=== PATIENT | female | born 1985 | race Caucasian/White ===

== ENCOUNTER 2017-07-16 20:16 | Emergency (ER) | payer BC ==
[~2017-07-16] VITALS: Ht 165.1 cm; Wt 72.6 kg
--- NOTE | 2017-07-16 21:16 | NUR ---
PT C/O PRODUCTIVE COUGH X4 DAYS, WHICH IS WORSE AT NIGHT. SELF REPORTED HX OF ASTHMA. PLACED ON MONITOR AND PULSE OX. RESPIRATIONS EVEN AND NON LABORED.
--- NOTE | 2017-07-16 21:21 | NUR ---
PATT LEAL AT BEDSIDE FOR MSE.
--- NOTE | 2017-07-16 21:29 | NUR ---
CONSENT OBTAINED FOR XRAY.
--- NOTE | 2017-07-16 21:46 | NUR ---
XRAY AT PT BEDSIDE.
[2017-07-16] MEDS ORDERED: predniSONE 50 MG TABLET ONE (21:53)
[2017-07-16] MEDS ORDERED: predniSONE 50 MG TABLET PO ONE (22:00)
--- NOTE | 2017-07-16 22:20 | NUR ---
Patient discharged to home in stable conditon. Written and verbal after care instructions given. Patient verbalizes understanding of instructions. Pt ambulated from ER w/ steady gait. VSS. No distress noted. Pt took all personal belongings.
[2017-07-16 22:31] VITALS: BP 118/84
== END 2017-07-16 22:32 | disposition home or self-care (01) ==
LOC: ER 20:16
DX: J40 Bronchitis, not specified as acute or chronic (principal); R05 Cough
CPT/HCPCS: 71045; A4663; J7512

== ENCOUNTER 2018-07-12 00:53 | Emergency (ER) | payer MEDICAID ==
[~2018-07-12] VITALS: Ht 165.1 cm; Wt 74.8 kg
--- NOTE | 2018-07-12 01:12 | NUR ---
Pt ambulates to ER with c/o abdominal pain x 24 hrs, worse in the last 3 hrs. Pt states she had a miscarriage (was 6 weeks ) last week & went to [facility], & was told to follow up in 2 weeks. LMP was on 05/03/18. G1A1. Denies chest pain/shortness of breath. Pt placed on monitor. Will continue to monitor.
--- NOTE | 2018-07-12 01:14 | NUR ---
Dr. Shara BELTRE MD at bedside to evaluate pt.
[2018-07-12] MEDS ORDERED: ONDANSETRON 4 MG/2 ML VIAL ONE (01:29)
[2018-07-12] MEDS ORDERED: MORPHINE SULFATE 4 MG/1 ML DISP.SYRIN ONE (01:29)
[2018-07-12] MEDS ORDERED: IV NORMAL SALINE 1000 ML BAG IV ONE (01:30)
[2018-07-12] MEDS ORDERED: ONDANSETRON 4 MG/2 ML VIAL IV ONE (01:30)
[2018-07-12] MEDS ORDERED: MORPHINE SULFATE 2 MG/1 ML DISP.SYRIN IV ONE (01:30)
[2018-07-12 01:41] LABS: BASOPHILS # (AUTO) 0.2 K/uL (0.0-8.0); BASOPHILS % (AUTO) 1.5 % (0.0-2.0); EOSINOPHILS # (AUTO) 0.4 K/uL (0.0-0.7); EOSINOPHILS % (AUTO) 3.6 % (0.0-7.0); HEMATOCRIT 41.9 % (31.2-41.9); LYMPHOCYTES # (AUTO) 4.1 K/uL (20.0-40.0); MEAN CORPUSCULAR HEMOGLOBIN 29.8 uug (24.7-32.8); MEAN CORPUSCULAR HGB CONC 33 g/dL (32.3-35.6); MEAN CORPUSCULAR VOLUME 89.4 fL (75.5-95.3); MONOCYTES # (AUTO) 0.6 K/uL (2.0-10.0); MONOCYTES % (AUTO) 6.3 % (0.0-11.0); NEUTROPHILS # (AUTO) 4.8 K/uL (1.8-8.9); NEUTROPHILS % (AUTO) 47.6 % (38.5-71.5); PLATELET COUNT (AUTO) 241 K/uL (179-408); RED BLOOD CELL COUNT(AUTO) 4.69 MIL/uL (3.63-4.92); WHITE BLOOD COUNT (AUTO) 10.1 K/uL (3.8-11.8)
[2018-07-12 01:46] LABS: CARBON DIOXIDE 26 mmol/L (21-32); CHLORIDE 105 mmol/L (98-107); CREATININE 0.7 mg/dL (0.6-1.3); GLUCOSE 93 mg/dL (74-106); POTASSIUM 4.1 mmol/L (3.5-5.1); UREA NITROGEN, BLOOD 16 mg/dL (7-18)
[2018-07-12 01:52] LABS: ALANINE AMINOTRANSFERASE 18 U/L (14-59); ALKALINE PHOSPHATASE 54 U/L (50-136); ASPARTATE AMINOTRANSFERASE 19 U/L (15-37); BILIRUBIN,DIRECT 0.1 mg/dL (0.0-0.2); BILIRUBIN,TOTAL 0.4 mg/dL (0.2-1.0); TOTAL PROTEIN, SERUM 7.6 g/dL (6.4-8.2)
--- NOTE | 2018-07-12 02:04 | NUR ---
hot cell technician at bedside.
--- NOTE | 2018-07-12 02:10 | NUR ---
Pt ambulated to restroom. Urine sample provided, sent to lab.
[2018-07-12 02:18] LABS: *BILIRUBIN,URIN NEGATIVE (NEGATIVE); *BLOOD, URINE Trace-lysed (NEGATIVE); *COLOR,URINE YELLOW (YELLOW); *KETONES,URINE NEGATIVE (NEGATIVE); *UROBILINOGEN,URINE 0.2 E.U./dl (NORMAL); LEUKOCYTE ESTERASE ,URINE NEGATIVE (NEGATIVE); NITRITE, URINE NEGATIVE (NEGATIVE); PH,URINE 6.5 (5.0-8.0); UGLUCOSE NEGATIVE (NEGATIVE)
[2018-07-12 02:21] LABS: *CLARITY,URINE HAZY (CLEAR)
--- NOTE | 2018-07-12 02:22 | NUR ---
Female commercial fisher accompanied female patient for cytogenetics technologist.
[2018-07-12 02:26] LABS: BACTERIA,URINE NONE SEEN /HPF (NONE SEEN); MUCUS,URINE FEW /LPF (0-FEW); SQUAMOUS EPITHELIAL CELL,UR MODERATE /HPF (NONE SEEN)
--- NOTE | 2018-07-12 02:50 | NUR ---
IV removed. Catheter intact and site benign. Pressure and 4x4 gauze applied to site. No bleeding noted.
--- NOTE | 2018-07-12 02:57 | NUR ---
Patient discharged to home in stable conditon. Written and verbal after care instructions given. Patient verbalizes understanding of instructions. Pt ambulated out of ER in steady gait. All belongings with pt. VSS. Pt has friend to pick her up & drive her home.
[2018-07-12 03:02] VITALS: BP 122/75
== END 2018-07-12 03:03 | disposition home or self-care (01) ==
LOC: ER 00:55
DX: R10.31 Right lower quadrant pain (principal)
CPT/HCPCS: 36415; 76856; 80048; 80076; 81001; 84702; 85025; 85730; 96374; 96375; 99284; J2270; J2405; A4663; J7030

== ENCOUNTER 2018-11-27 11:37 | Emergency (ER) | payer SELFPAY ==
[~2018-11-27] VITALS: Ht 165.1 cm; Wt 78.9 kg
--- NOTE | 2018-11-27 12:01 | NUR ---
assissted md with pt exam. pt tolerated well.
--- NOTE | 2018-11-27 12:44 | NUR ---
Patient discharged to home in stable conditon. Written and verbal after care instructions given. Patient verbalizes understanding of instructions.pt walks in steady gait.
== END 2018-11-27 12:46 | disposition home or self-care (01) ==
LOC: ER 11:37
DX: O26.891 Other specified pregnancy related conditions, first trimester (principal); A60.00 Herpesviral infection of urogenital system, unspecified; Z3A.12 12 weeks gestation of pregnancy
CPT/HCPCS: A4663

== ENCOUNTER 2019-01-06 11:17 | Emergency (ER) | payer MEDICAID ==
[~2019-01-06] VITALS: Ht 165.1 cm; Wt 79.4 kg
--- NOTE | 2019-01-06 12:14 | NUR ---
PT IS A/OX4, PRESENTS TO THE ER C/O ABD PAIN X 17 WEEKS. PT IS CURRENTLY APPROXIMATELY 17 WEEKS, . VSS. PT REPORT NORMAL BM, NO PAIN ON URINATION. NO ABD TENDERNESS, NO REBOUND TENDERNESS. PT DENIES C/P, SOB, N/V/D, DIZZINESS, HEADACHE.
[2019-01-06 12:17] LABS: BASOPHILS # (AUTO) 0.1 K/uL (0.0-8.0); BASOPHILS % (AUTO) 0.7 % (0.0-2.0); EOSINOPHILS # (AUTO) 0.2 K/uL (0.0-0.7); EOSINOPHILS % (AUTO) 1.7 % (0.0-7.0); HEMATOCRIT 38.8 % (31.2-41.9); HEMOGLOBIN 13.4 g/dL (10.9-14.3); LYMPHOCYTES # (AUTO) 2.4 K/uL (20.0-40.0); LYMPHOCYTES % (AUTO) 23.4 % (20.5-51.5); MEAN CORPUSCULAR HEMOGLOBIN 29.9 uug (24.7-32.8); MEAN CORPUSCULAR HGB CONC 35 g/dL (32.3-35.6); MEAN CORPUSCULAR VOLUME 86.4 fL (75.5-95.3); MONOCYTES # (AUTO) 0.7 K/uL (2.0-10.0); MONOCYTES % (AUTO) 7.3 % (0.0-11.0); NEUTROPHILS # (AUTO) 6.8 K/uL (1.8-8.9); NEUTROPHILS % (AUTO) 66.9 % (38.5-71.5); PLATELET COUNT (AUTO) 246 K/uL (179-408); RED BLOOD CELL COUNT(AUTO) 4.49 MIL/uL (3.63-4.92); WHITE BLOOD COUNT (AUTO) 10.2 K/uL (3.8-11.8)
[2019-01-06 12:23] LABS: *BILIRUBIN,URIN NEGATIVE (NEGATIVE); *BLOOD, URINE NEGATIVE (NEGATIVE); *CLARITY,URINE SLIGHTLY CLOUDY (CLEAR); *COLOR,URINE DARK YELLOW (YELLOW); *KETONES,URINE NEGATIVE (NEGATIVE); *UROBILINOGEN,URINE 0.2 E.U./dl (NORMAL); LEUKOCYTE ESTERASE ,URINE NEGATIVE (NEGATIVE); NITRITE, URINE NEGATIVE (NEGATIVE); PH,URINE 6.5 (5.0-8.0); UGLUCOSE NEGATIVE (NEGATIVE)
[2019-01-06 12:25] LABS: CREATININE 0.6 mg/dL (0.6-1.3); POTASSIUM 4.1 mmol/L (3.5-5.1)
[2019-01-06 12:36] LABS: BILIRUBIN,DIRECT 0.1 mg/dL (0.0-0.2); BILIRUBIN,TOTAL 0.2 mg/dL (0.2-1.0); TOTAL PROTEIN, SERUM 6.5 g/dL (6.4-8.2)
[2019-01-06 12:36] LABS: BACTERIA,URINE NONE SEEN /HPF (NONE SEEN); RBC,URINE 0-3 /HPF (0-3); SQUAMOUS EPITHELIAL CELL,UR NONE SEEN /HPF (NONE SEEN); WBC,URINE 0-3 /HPF (0-3)
[2019-01-06] MEDS ORDERED: ACETAMINOPHEN 325 MG TABLET PO ONE (13:00)
[2019-01-06] MEDS ORDERED: ACETAMINOPHEN 325 MG TABLET ONE (13:07)
--- NOTE | 2019-01-06 13:30 | NUR ---
PATT LEAL AT BEDSIDE FOR PT UPDATE.
--- NOTE | 2019-01-06 13:39 | NUR ---
Patient discharged to home in stable conditon. Written and verbal after care instructions given. Patient verbalizes understanding of instructions. ALL BELONGINGS W/ PT. PT SELF-AMBULATED W/O DIFFICULTY.
[2019-01-06 13:40] VITALS: BP 122/70
== END 2019-01-06 13:43 | disposition home or self-care (01) ==
LOC: ER 11:17
DX: O26.892 Other specified pregnancy related conditions, second trimester (principal); R10.32 Left lower quadrant pain; Z3A.17 17 weeks gestation of pregnancy
CPT/HCPCS: 36415; 76856; 85025; 86850; 86900; 86901; A4663

== ENCOUNTER 2019-02-15 15:40 | Emergency (ER) | payer MEDICAID ==
[~2019-02-15] VITALS: Ht 165.1 cm; Wt 83.9 kg
--- NOTE | 2019-02-15 16:13 | NUR ---
Call placed to patient's OB, Concepción Whyte. TYESHA speaking with her via telephone.
[2019-02-15] MEDS ORDERED: ONDANSETRON ODT 4 MG TAB.RAPDIS SL ONE (16:15)
--- NOTE | 2019-02-15 16:15 | NUR ---
Female computer discovery teacher accompanied female patient for (DR HAHN).
[2019-02-15] MEDS ORDERED: ONDANSETRON ODT 4 MG TAB.RAPDIS ONE (16:32)
[2019-02-15 16:37] LABS: BASOPHILS # (AUTO) 0.1 K/uL (0.0-8.0); BASOPHILS % (AUTO) 0.9 % (0.0-2.0); EOSINOPHILS # (AUTO) 0.1 K/uL (0.0-0.7); EOSINOPHILS % (AUTO) 0.6 % (0.0-7.0); HEMATOCRIT 36.7 % (31.2-41.9); HEMOGLOBIN 12.7 g/dL (10.9-14.3); LYMPHOCYTES # (AUTO) 2.4 K/uL (20.0-40.0); LYMPHOCYTES % (AUTO) 21.7 % (20.5-51.5); MEAN CORPUSCULAR HEMOGLOBIN 30.9 uug (24.7-32.8); MEAN CORPUSCULAR HGB CONC 35 g/dL (32.3-35.6); MEAN CORPUSCULAR VOLUME 89.6 fL (75.5-95.3); MONOCYTES # (AUTO) 0.7 K/uL (2.0-10.0); MONOCYTES % (AUTO) 6.6 % (0.0-11.0); NEUTROPHILS # (AUTO) 7.7 K/uL (1.8-8.9); NEUTROPHILS % (AUTO) 70.2 % (38.5-71.5); PLATELET COUNT (AUTO) 223 K/uL (179-408); RED BLOOD CELL COUNT(AUTO) 4.09 MIL/uL (3.63-4.92); WHITE BLOOD COUNT (AUTO) 10.9 K/uL (3.8-11.8)
[2019-02-15 16:48] LABS: CREATININE 0.6 mg/dL (0.6-1.3); POTASSIUM 3.9 mmol/L (3.5-5.1)
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
[2019-02-15 16:54] LABS: BILIRUBIN,DIRECT 0.1 mg/dL (0.0-0.2); BILIRUBIN,TOTAL 0.3 mg/dL (0.2-1.0); TOTAL PROTEIN, SERUM 6.5 g/dL (6.4-8.2)
--- NOTE | 2019-02-15 18:09 | NUR ---
Patient discharged to home in stable conditon. Written and verbal after care instructions given. Patient verbalizes understanding of instructions.
[2019-02-15 18:10] VITALS: BP 101/72
== END 2019-02-15 18:11 | disposition home or self-care (01) ==
LOC: ER 15:53
DX: O9A.212 Injury, poisoning and certain other consequences of external causes complicating pregnancy, second trimester (principal); S06.0X0A Concussion without loss of consciousness, initial encounter; R10.9 Unspecified abdominal pain; Z3A.23 23 weeks gestation of pregnancy; Y04.2XXA Assault by strike against or bumped into by another person, initial encounter; Y93.89 Activity, other specified; Y92.89 Other specified places as the place of occurrence of the external cause; Y99.8 Other external cause status
CPT/HCPCS: 36415; 70450; 76856; 85025; 85730; 86900; 86901; A4663; Q0162